=== PATIENT | female | born 1955 | race American Indian/Alaskan Native ===

== ENCOUNTER 2020-03-11 18:44 | Emergency (ER) | payer BC, OTHER ==
[2020-03-11] MEDS ORDERED: Acetaminophen/HYDROcodone 325-10 MG Tab PO ONE ×2 (18:45→19:56)
--- NOTE | 2020-03-11 19:10 | CR ---
PROCEDURE INFORMATION: Exam: XR Left Ankle Exam date and time: 03/11/2020 6:57 PM Age: 64 years old Clinical indication: Other: Fall; Additional info: Pain TECHNIQUE: Imaging protocol: XR Left ankle. Views: 3 or more views. COMPARISON: No relevant prior studies available. FINDINGS: Bones/joints: There is an intramedullary amador within the tibia which is secured with 2 proximal and 2 distal threaded screws. There is an acute trimalleolar fracture of the ankle. There is a transverse fracture of the medial malleolus. The distal fracture fragment is laterally displaced by half the width of the malleolus. There is a fracture oriented obliquely through the distal metaphysis of the fibula. The distal fracture fragment is laterally displaced by half the width of the shaft. There is a nondisplaced fracture through the posterior malleolus. There is widening of the ankle mortise medially. There is a large plantar calcaneal spur. Soft tissues: There is extensive soft tissue swelling surrounding the ankle. IMPRESSION: Acute trimalleolar fracture with disruption of the ankle mortise medially in this patient with a history of previous pinning of the tibia.
[2020-03-11] MEDS ORDERED: Acetaminophen/HYDROcodone 325-10 MG Tab ONE (20:06)
--- NOTE | 2020-03-11 20:06 | EDM.PDOC ---
ED HPI GENERAL MEDICAL PROBLEM - General Chief Complaint: Lower Extremity Injury/Pain Stated Complaint: LEFT LEG BY THE ANKLE POSSIBLE BROKEN Time Seen by Provider: 03/11/20 19:35 Source of Information: Reports: Patient History Limitations: Reports: No Limitations - History of Present Illness INITIAL COMMENTS - FREE TEXT/NARRATIVE: This 64 yo female patient reports to the ED with left ankle pain. The patient reports she "rolled" her ankle this morning and has noticed increased pain and swelling since that time. 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 Right Upper Arm Pain Score (Numeric/FACES): 10 - Related Data Allergies Allergy/AdvReac Type Severity Reaction Status Date / Time codeine Allergy Cannot Verified 03/11/20 20:00 Remember Past Medical History Cardiovascular History: Reports: Hypertension - Past Surgical History GI Surgical History: Reports: Cholecystectomy Musculoskeletal Surgical History: Reports: Other (See Below) Other Musculoskeletal Surgeries/Procedures:: LEft lower leg surgery with rods (2012) Social & Family History - Family History Family Medical History: Noncontributory - Tobacco Use Smoking Status *Q: Never Smoker Second Hand Smoke Exposure: No - Caffeine Use Caffeine Use: Reports: Soda, Tea - Alcohol Use Date of Last Drink: 03/09/20 - Recreational Drug Use Recreational Drug Use: No Review of Systems - Review of Systems Review Of Systems: Comprehensive ROS is negative, except as noted in HPI. ED EXAM, GENERAL - Physical Exam Exam: See Below Exam Limited By: No Limitations General Appearance: Alert, WD/WN, No Apparent Distress Eye Exam: Bilateral Eye: EOMI, Normal Inspection, PERRL Ears: Normal External Exam, Normal Canal, Hearing Grossly Normal, Normal TMs Nose: Normal Inspection, Normal Mucosa, No Blood Throat/Mouth: Normal Inspection, Normal Lips, Normal Teeth, Normal Gums, Normal Oropharynx, Normal Voice, No Airway Compromise Head: Atraumatic, Normocephalic Neck: Normal Inspection, Supple, Non-Tender, Full Range of Motion Respiratory/Chest: No Respiratory Distress, Lungs Clear, Normal Breath Sounds, No Accessory Muscle Use, Chest Non-Tender Cardiovascular: Normal Peripheral Pulses, Regular Rate, Rhythm, No Edema, No Gallop, No JVD, No Murmur, No Rub GI/Abdominal: Normal Bowel Sounds, Soft, Non-Tender, No Organomegaly, No Di stention, No Abnormal Bruit, No Mass (Female) Exam: Deferred Rectal (Female) Exam: Deferred Back Exam: Normal Inspection, Full Range of Motion, NT Extremities: Leg Pain (left ankle pain with swelling) Neurological: Alert, Oriented, CN II-XII Intact, Normal Cognition, Abnormal Gait Psychiatric: Normal Affect, Normal Mood Lymphatic: No Adenopathy Course - Vital Signs Last Recorded V/S: Last Vital Signs Temp 36.8 C 03/11/20 19:12 Pulse 69 03/11/20 19:12 Resp 18 03/11/20 19:12 BP 131/54 L 03/11/20 19:12 Pulse Ox 98 03/11/20 19:12 - Orders/Labs/Meds Meds: Medications Discontinued Medications Generic Name Dose Route Start Last Admin Trade Name Freq PRN Reason Stop Dose Admin Hydrocodone Bitart/Acetaminophen 1 tab 03/11/20 19:56 [place] 325-10 Mg PO 03/11/20 19:57 ONETIME ONE Departure - Departure Time of Disposition: 20:00 Disposition: Home, Self-Care 01 Condition: Fair Clinical Impression: Fracture of tibia with fibula, left, closed Qualifiers: Encounter type: initial encounter Qualified Code(s): S82.202A - Unspecified fracture of shaft of left tibia, initial encounter for closed fracture; S82.402A - Unspecified fracture of shaft of left fibula, initial encounter for closed fracture - Discharge Information *PRESCRIPTION DRUG MONITORING PROGRAM REVIEWED*: Not Applicable *COPY OF PRESCRIPTION DRUG MONITORING REPORT IN PATIENT MIRIAM: Not Applicable Instructions: Tibial and Fibular Fractures Care Plan Goals: The patient was advised of the examination and x-ray results during the visit. The patient was placed in an immobilizing boot and advised to have NO weight bearing activities. The patient was encouraged to rest, ice and elevate the extremity. The patient was given an oral dose of Lookout (10/325) while in the ED and 1 dose to take at 0200 in the morning (if needed). The patient was advised to call [facility] in the morning for continued evaluation and further management. The patient was discharged with a script for Lookout (5/325) #10 to take 1 by mouth every 6 hours as needed for pain. If the patient has any additional symptoms or concerns, the patient should either return to the emergency department or visit her primary care facility. Sepsis Event Note (ED) - Evaluation Sepsis Screening Result: No Definite Risk - Focused Exam Vital Signs: Vital Signs Temp Pulse Resp BP Pulse Ox 03/11/20 19:12 36.8 C 69 18 131/54 L 98
== END 2020-03-11 20:15 | disposition home or self-care (01) ==
LOC: DL.ED 18:44
DX: S82.852A Displaced trimalleolar fracture of left lower leg, initial encounter for closed fracture (principal); I10 Essential (primary) hypertension; Z88.5 Allergy status to narcotic agent; X50.9XXA Other and unspecified overexertion or strenuous movements or postures, initial encounter
CPT/HCPCS: 73610; 99283; A9270

== ENCOUNTER 2020-03-15 20:52 | Emergency (ER) | payer BC, OTHER ==
--- NOTE | 2020-03-15 21:15 | EDM.PDOC ---
ED HPI GENERAL MEDICAL PROBLEM - General Chief Complaint: Lower Extremity Injury/Pain Stated Complaint: LEFT LEG ANKLE BROKEN, FIBULA AND TIBULA BONES Time Seen by Provider: 03/15/20 21:15 Source of Information: Reports: Patient, RN, RN Notes Reviewed History Limitations: Reports: No Limitations - History of Present Illness INITIAL COMMENTS - FREE TEXT/NARRATIVE: Patient presents to ER with complaint of pain to the left ankle. Patient was seen in the ER on 03/11/2020 with fracture distal tib-fib. Patient did see Ortho surgeon today, ankle was manipulated and adjusted. Patient was not given anything for pain, was instructed to use Tylenol and ibuprofen, which she states is not helping with the pain. Patient rates pain /. States she does have surgery on 03/19/2020. Onset: Today, Sudden Left Leg Pain Score (Numeric/FACES): 10 - Related Data Allergies Allergy/AdvReac Type Severity Reaction Status Date / Time codeine Allergy Cannot Verified 03/15/20 21:08 Remember Home Meds: Home Meds hydroCHLOROthiazide [Hydrochlorothiazide] 25 mg PO DAILY 03/15/20 [History] Past Medical History Cardiovascular History: Reports: Hypertension Musculoskeletal History: Reports: Fracture - Past Surgical History GI Surgical History: Reports: Cholecystectomy Musculoskeletal Surgical History: Reports: Other (See Below) Other Musculoskeletal Surgeries/Procedures:: L lower leg HX of rods Social & Family History - Family History Family Medical History: Noncontributory - Tobacco Use Smoking Status *Q: Never Smoker Second Hand Smoke Exposure: No - Caffeine Use Caffeine Use: Reports: None - Recreational Drug Use Recreational Drug Use: No Review of Systems - Review of Systems Review Of Systems: Comprehensive ROS is negative, except as noted in HPI. ED EXAM, GENERAL - Physical Exam Exam: See Below Exam Limited By: No Limitations General Appearance: Alert, WD/WN, Mild Distress Eye Exam: Bilateral Eye: EOMI, Normal Inspection Ears: Normal External Exam, Hearing Grossly Normal Nose: Normal Inspection Throat/Mouth: Normal Inspection, Normal Voice, No Airway Compromise Head: Atraumatic, Normocephalic Neck: Normal Inspection, Supple, Non-Tender, Full Range of Motion Respiratory/Chest: No Respiratory Distress, Lungs Clear, Normal Breath Sounds, No Accessory Muscle Use, Chest Non-Tender Cardiovascular: Normal Peripheral Pulses, Regular Rate, Rhythm, No Edema, No Gallop, No JVD, No Murmur, No Rub Peripheral Pulses: 2+: Radial (L), Radial (R), Dorsalis Pedis (L), Dorsalis Pedis (R) GI/Abdominal: Normal Bowel Sounds, Soft, Non-Tender (Female) Exam: Deferred Rectal (Female) Exam: Deferred Back Exam: Normal Inspection, Full Range of Motion Extremities: Leg Pain (Left ankle casted/splinted, reports pain 10/10), Limited Range of Motion (left ankle) Neurological: Alert, Oriented, CN II-XII Intact, Normal Cognition, Normal Reflexes, No Motor/Sensory Deficits Psychiatric: Normal Affect, Normal Mood Skin Exam: Warm, Dry, Intact, Normal Color, No Rash Lymphatic: No Adenopathy Course - Vital Signs Last Recorded V/S: Last Vital Signs Temp 97.5 F 03/15/20 21:01 Pulse 68 03/15/20 21:01 Resp 18 03/15/20 21:01 BP 153/62 H 03/15/20 21:01 Pulse Ox 98 03/15/20 21:01 - Orders/Labs/Meds Meds: Medications Discontinued Medications Generic Name Dose Route Start Last Admin Trade Name Ivy PRN Reason Stop Dose Admin Hydrocodone Bitart/Acetaminophen 1 tab 03/15/20 21:21 03/15/20 21:38 [place] 325-5 Mg PO 03/15/20 21:22 Not Given ONETIME ONE Hydromorphone HCl 0.5 mg 03/15/20 21:29 03/15/20 21:38 Dilaudid IM 03/15/20 21:30 0.5 mg ONETIME ONE Administration Ketorolac Tromethamine 30 mg 03/15/20 21:28 03/15/20 21:38 Toradol IM 03/15/20 21:29 30 mg ONETIME ONE Administration Departure - Departure Time of Disposition: 21:49 Disposition: Home, Self-Care 01 Condition: Fair Clinical Impression: Pain in left ankle Qualifiers: Chronicity: acute Qualified Code(s): M25.572 - Pain in left ankle and joints of left foot Fracture of tibia with fibula, left, closed Qualifiers: Encounter type: initial encounter Qualified Code(s): S82.202A - Unspecified fracture of shaft of left tibia, initial encounter for closed fracture - Discharge Information *PRESCRIPTION DRUG MONITORING PROGRAM REVIEWED*: No *COPY OF PRESCRIPTION DRUG MONITORING REPORT IN PATIENT MIRIAM: No Instructions: Pain Medicine Instructions, [id number] Forms: ED Department Discharge Additional Instructions: Follow up with Ortho surgery on Thursday Continue to take ibuprofen as directed for pain Rx: [place] as directed Follow orthopedics instructions Sepsis Event Note (ED) - Evaluation Sepsis Screening Result: No Definite Risk - Focused Exam Vital Signs: Vital Signs Temp Pulse Resp BP Pulse Ox 03/15/20 21:01 97.5 F 68 18 153/62 H 98
[2020-03-15] MEDS ORDERED: Acetaminophen/HYDROcodone 325-5 MG Tab PO ONE (21:21)
[2020-03-15] MEDS ORDERED: Ketorolac 30 MG/ML SDV IM ONE (21:28)
[2020-03-15] MEDS ORDERED: HYDROmorphone 0.5 MG/0.5 ML Syringe IM ONE (21:29)
== END 2020-03-15 21:50 | disposition home or self-care (01) ==
LOC: DL.ED 20:52
DX: S82.852A Displaced trimalleolar fracture of left lower leg, initial encounter for closed fracture (principal); Z88.5 Allergy status to narcotic agent; I10 Essential (primary) hypertension; Z79.899 Other long term (current) drug therapy; X58.XXXA Exposure to other specified factors, initial encounter
CPT/HCPCS: 96372; 99283; J1170; J1885

== ENCOUNTER 2020-03-17 00:37 | Emergency (ER) | payer BC, OTHER ==
--- NOTE | 2020-03-17 01:19 | EDM.PDOC ---
ED HPI GENERAL MEDICAL PROBLEM - General Chief Complaint: Lower Extremity Injury/Pain Stated Complaint: SO MUCH PAIN LEFT LEG, TOES NUMB, CAST TIGHT Time Seen by Provider: 03/17/20 01:30 Source of Information: Reports: Patient History Limitations: Reports: No Limitations - History of Present Illness INITIAL COMMENTS - FREE TEXT/NARRATIVE: ED with c/o severe pain to left lower leg, seen in ED night prior with similar c/o, Did not contact ortho during day. States pain increased after manipulation of fracture and splint replaced by ortho last week, states pain greatest at area of indentation mid splint. Describes increased swelling of foot and tingling in toes and foot. Has had foot elevated and applying ice to extremity. 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 Left Ankle Pain Score (Numeric/FACES): 10 - Related Data Allergies Allergy/AdvReac Type Severity Reaction Status Date / Time codeine Allergy Cannot Verified 03/17/20 01:13 Remember Home Meds: Home Meds hydroCHLOROthiazide [Hydrochlorothiazide] 25 mg PO DAILY 03/15/20 [History] Past Medical History Cardiovascular History: Reports: Hypertension Musculoskeletal History: Reports: Fracture - Past Surgical History GI Surgical History: Reports: Cholecystectomy Musculoskeletal Surgical History: Reports: Other (See Below) Other Musculoskeletal Surgeries/Procedures:: L lower leg HX of rods Social & Family History - Family History Family Medical History: Noncontributory - Caffeine Use Caffeine Use: Reports: None Review of Systems - Review of Systems Review Of Systems: Comprehensive ROS is negative, except as noted in HPI. ED EXAM, GENERAL - Physical Exam Exam: See Below Exam Limited By: No Limitations General Appearance: Alert, Moderate Distress Eye Exam: Bilateral Eye: EOMI Ears: Normal External Exam, Normal Canal Nose: Normal Inspection Throat/Mouth: Normal Inspection Neck: Full Range of Motion Respiratory/Chest: No Respiratory Distress Cardiovascular: Normal Peripheral Pulses, Regular Rate, Rhythm Extremities: Normal Capillary Refill (decreased left in comparison to right), Limited Range of Motion, Other (splint left lower extremity clan intact. indentation mid posterior medial. jewel swollen. pedal pulse present, ). No: Pallor Neurological: Alert, Oriented, Normal Cognition, Normal Gait Psychiatric: Normal Affect, Normal Mood Skin Exam: Warm, Dry, Intact ED TRAUMA EXTREMITY PROCEDURES - Splinting Left Lower Extremity Pre-Procedure NV Status: Abnormal Post-Procedure NV Status: Normal Splint Material: Fiberglass Splint Design: Stirrup Applied & Form Fitted By: Provider Provider Post-Splint Application NV Check: NV Status Normal Complications: No Course - Vital Signs Last Recorded V/S: Last Vital Signs Temp 98.4 F 03/17/20 01:21 Pulse 70 03/17/20 01:21 Resp 20 03/17/20 01:21 BP 151/69 H 03/17/20 01:21 Pulse Ox 99 03/17/20 01:21 - Orders/Labs/Meds Meds: Medications Discontinued Medications Generic Name Dose Route Start Last Admin Trade Name Ivy PRN Reason Stop Dose Admin Hydrocodone Bitart/Acetaminophen 1 tab 03/17/20 02:03 03/17/20 02:15 [place] 325-10 Mg PO 03/17/20 02:04 1 tab ONETIME ONE Administration Fentanyl 25 mcg 03/18/20 06:27 Sublimaze IVPUSH 03/18/20 06:28 ONETIME ONE Sodium Chloride 1,000 mls @ 999 mls/hr 03/18/20 06:29 Normal Saline IV 03/18/20 07:29 .BOLUS ONE Ketorolac Tromethamine 30 mg 03/17/20 02:02 03/17/20 02:14 Toradol IM 03/17/20 02:03 30 mg ONETIME ONE Administration - Re-Assessments/Exams Free Text/Narrative Re-Assessment/Exam: stirrup splnt removed, replaced. Patient reports improvement in symptoms of pain and tingling. Improved sensation to distal toes. Departure - Departure Time of Disposition: 03:03 Disposition: Home, Self-Care 01 Condition: Good (trimalleolar) Clinical Impression: Trimalleolar fracture of left ankle Qualifiers: Encounter type: subsequent encounter Fracture type: closed Fracture healing: with routine healing Qualified Code(s): S82.852D - Displaced trimalleolar fracture of left lower leg, subsequent encounter for closed fracture with routine healing - Discharge Information *PRESCRIPTION DRUG MONITORING PROGRAM REVIEWED*: No *COPY OF PRESCRIPTION DRUG MONITORING REPORT IN PATIENT MIRIAM: No Instructions: Displaced Medial or Posterior Malleolar Ankle Fracture Treated With ORIF, Cast or Splint Care, Adult Referrals: PCP,None [Primary Care Provider] - Forms: ED Department Discharge Additional Instructions: elevate ice non weight bearing follow up with ortho as scheduled on Thursday
[2020-03-17] MEDS ORDERED: Ketorolac 30 MG/ML SDV IM ONE (02:02)
[2020-03-17] MEDS ORDERED: Acetaminophen/HYDROcodone 325-10 MG Tab PO ONE (02:03)
--- NOTE | 2020-03-17 02:26 | CR ---
PROCEDURE INFORMATION: Exam: XR Left Tibia and Fibula Exam date and time: 03/17/2020 1:39 AM Age: 64 years old Clinical indication: Other: No new injury; Additional info: Ankle pain TECHNIQUE: Imaging protocol: XR Left tibia and fibula. Views: 2 views. COMPARISON: CR LOWER LEG LT 08/27/2009 10:05 AM FINDINGS: Bones/joints: Trimalleolar fracture. This involves the distal fibula and the medial malleolus base. This is consistent with an eversion type injury. There also appears to be a fracture of the posterior aspect of the tibia. Patient is now in a plaster cast. Fractures are well aligned. Previous tibial fracture repair with medullary amador. That fracture has healed completely. Original fracture date for that lesion was 2008. Soft tissues: Normal. IMPRESSION: Well aligned trimalleolar fracture with closed reduction and casting.
[2020-03-18] MEDS ORDERED: fentaNYL 100 MCG/2 ML SDV IVPUSH ONE (06:27)
[2020-03-18] MEDS ORDERED: Sodium Chloride 0.9% 1,000 ML IV ONE (06:29)
== END 2020-03-17 03:15 | disposition home or self-care (01) ==
LOC: DL.ED 00:37
DX: S82.852A Displaced trimalleolar fracture of left lower leg, initial encounter for closed fracture (principal); I10 Essential (primary) hypertension; Z88.5 Allergy status to narcotic agent; Z79.899 Other long term (current) drug therapy; X50.1XXA Overexertion from prolonged static or awkward postures, initial encounter
CPT/HCPCS: 29515; 73590; 96372; 99283; A9270; J1885

== ENCOUNTER 2020-03-22 21:44 | Emergency (ER) | payer BC, OTHER ==
[2020-03-22] MEDS ORDERED: HYDROmorphone 1 MG/ML Syringe IM ONE (22:16)
[2020-03-22] MEDS ORDERED: Promethazine 25 MG/ML SDV IM ONE (22:16)
--- NOTE | 2020-03-22 22:23 | EDM.PDOC ---
ED HPI GENERAL MEDICAL PROBLEM - General Chief Complaint: Lower Extremity Injury/Pain Stated Complaint: LEFT LEG THROBING Time Seen by Provider: 03/22/20 21:56 Source of Information: Reports: Patient History Limitations: Reports: No Limitations - History of Present Illness INITIAL COMMENTS - FREE TEXT/NARRATIVE: Very pleasant tevin lady comes to the emergency department today with complaints of continued pressure and pain to her left lower extremity. This patient on Thursday just had surgery Thursday due to an acute trimalleolar fracture. She has not slept well ever since the cast was put in place. She has constant pain and pressure and it is throbbing and she is unable to sleep. She has not been taking her oxycodone very much nor her gabapentin as it makes her sick. She has been elevating her leg and keeping ice on it but she just cannot stand the pressure and the pain. [place] any paresthesias to her lower extremity. She also complains of skin irritation and pain on the sole of her foot where the cast is rubbing on her foot. Some falls or trauma to this left lower extremity or anywhere else. Left Ankle Pain Score (Numeric/FACES): 9 - Related Data Allergies Allergy/AdvReac Type Severity Reaction Status Date / Time codeine Allergy Cannot Verified 03/17/20 01:13 Remember Home Meds: Home Meds hydroCHLOROthiazide [Hydrochlorothiazide] 25 mg PO DAILY 03/15/20 [History] Alendronate [Fosamax] 1 dose PO ASDIRECTED 03/22/20 [History] Amitriptyline [Elavil] 10 mg PO DAILY 03/22/20 [History] Aspirin [Adult Low Dose Aspirin EC] 81 mg PO DAILY 03/22/20 [History] Diclofenac Sodium [Voltaren 1% Gel] 1 applic TOP ASDIRECTED PRN 03/22/20 [History] Fluticasone/Salmeterol [Fluticasone-Salmeterol 55-14 MCG Powder Inh] 1 inh INH DAILY 03/22/20 [History] Ibuprofen [Motrin] 600 mg PO Q6H PRN 03/22/20 [History] Lidocaine 5% [Lidoderm 5%] 1 patch TOP ASDIRECTED PRN 03/22/20 [History] Potassium Chloride 8 meq PO DAILY 03/22/20 [History] SUMAtriptan [Imitrex] 100 mg PO ASDIRECTED PRN 03/22/20 [History] Past Medical History Cardiovascular History: Reports: Hypertension Respiratory History: Reports: COPD Musculoskeletal History: Reports: Fracture Other Musculoskeletal History: tib/fib- 03/03 Psychiatric History: Reports: Anxiety - Past Surgical History GI Surgical History: Reports: Cholecystectomy Musculoskeletal Surgical History: Reports: Other (See Below) Other Musculoskeletal Surgeries/Procedures:: L lower leg HX of rods Social & Family History - Family History Family Medical History: Noncontributory - Tobacco Use Smoking Status *Q: Never Smoker Second Hand Smoke Exposure: No - Caffeine Use Caffeine Use: Reports: Soda - Recreational Drug Use Recreational Drug Use: No Review of Systems - Review of Systems Review Of Systems: Comprehensive ROS is negative, except as noted in HPI. ED EXAM, GENERAL - Physical Exam Exam: See Below Exam Limited By: No Limitations General Appearance: Alert, WD/WN, No Apparent Distress, Moderate Distress Respiratory/Chest: No Respiratory Distress, Lungs Clear Cardiovascular: Normal Peripheral Pulses, Regular Rate, Rhythm Peripheral Pulses: 2+: Radial (L), Radial (R), Posterior Tibial (R), Dorsalis Pedis (L), Dorsalis Pedis (R) GI/Abdominal: Normal Bowel Sounds, Soft Extremities: No: Normal Inspection (On the left lower extremity there is almost completely circumferential cast below the knee all the way down to the ball of the foot. When I examine the plantar surface of the left foot there is some plaster material that is exposed and rubbing on the skin in the sole of the foot on the first second and third metatarsal region. There is no sign of infection. There is I would say moderate amount of swelling to the foot. Capillary refill is appropriate. CMS is intact appropriate from what I can examine.) Neurological: Alert, Oriented, Normal Cognition, No Motor/Sensory Deficits Psychiatric: Normal Affect, Normal Mood Skin Exam: Warm, Dry, Intact, Normal Color Course - Vital Signs Last Recorded V/S: Last Vital Signs Temp 96.8 F L 03/22/20 21:54 Pulse 70 03/22/20 21:54 Resp 19 03/22/20 21:54 BP 146/100 H 03/22/20 21:54 Pulse Ox 100 03/22/20 21:54 - Orders/Labs/Meds Meds: Medications Discontinued Medications Generic Name Dose Route Start Last Admin Trade Name Freq PRN Reason Stop Dose Admin Hydromorphone HCl 1 mg 03/22/20 22:16 03/22/20 22:22 Dilaudid IM 03/22/20 22:17 1 mg ONETIME ONE Administration Promethazine HCl 25 mg 03/22/20 22:16 03/22/20 22:22 Phenergan IM 03/22/20 22:17 25 mg ONETIME ONE Administration - Re-Assessments/Exams Free Text/Narrative Re-Assessment/Exam: 03/23/20 00:36 The patient really would like me to remove the cast although I do not feel comfortable doing that as she just recently had surgery. I did remove the [place] wrap. And was able to flex the cast just ever so slightly to relieve some pressure around the ankle region. I also was able to put some rolled batting gently on the sole of her foot where the plaster is touching it on her foot and causing irritation and she had quite a bit of almost instant relief to most of her pain on the sole of her foot. Her pain around her ankle is much improved. Warren wrap applied loosely. Patient does not want her oxycodone as it makes her ill. I did advise I think that the Neurontin is actually very good and appropriate medication at this time for pain management. Her oxycodone was destroyed by the nursing staff. I will give her a prescription of hydrocodone 10/325 she said this actually worked better for her pain previously in the emergency department. She had 15 tablets of oxycodone 5 mg of a prescription for 30 from Thursday. These were destroyed and a prescription for 30 of hydrocodone 10/325 was given to the patient. Her CMS was intact appropriately after reapplying the Warren wrap. She is much more comfortable with this plan. She was also given a milligram of Dilaudid and 25 of Phenergan to help with pain and relaxation for tonight as she has not slept for the past couple of days. She is comfortable with this plan and her questions are answered. Departure - Departure Time of Disposition: 20:18 Disposition: Home, Self-Care 01 Clinical Impression: Post-op pain, Skin irritation - Discharge Information Instructions: How to Use Cold Therapy, [id number], Pain Medicine Instruction s, [id number], Cast or Splint Care, Adult Referrals: PCP,None [Primary Care Provider] - Forms: ED Department Discharge Additional Instructions: We discarded the Oxycodone at your request and wasted that medication. Continue with the Gabapentin this is a good medication for this time of pain. Take as prescribed. Try Hydrocodone 10/315, 1/2-1 tablet every 4-6 hrs with food as needed for pain. Caution sedation. Do not take Tylenol with this medication as it has Tylenol in it as well. RX given to the patient 30. Make sure and elevate the extremity above the level of your heart as much as possible. Continue with aggressive ice therapy to the lower extremity as well. Contact your surgeon and let him know what was changed tonight in the ED, you really need the cast replaced with the plaster that is touching and breaking down your skin. This needs to be done prior to the of this month. Return to the ED if new or worsening symptoms. Sepsis Event Note (ED) - Evaluation Sepsis Screening Result: No Definite Risk - Focused Exam Vital Signs: Vital Signs Temp Pulse Resp BP Pulse Ox 03/22/20 21:54 96.8 F L 70 19 146/100 H 100 - Assessment/Plan Assessment:: SP left ankle fracture with post op pain. Skin irritation on the sole of the foot from the plaster material. Plan: We discarded the Oxycodone at your request and wasted that medication. Continue with the Gabapentin this is a good medication for this time of pain. Take as prescribed. Try Hydrocodone 10/315, 1/2-1 tablet every 4-6 hrs with food as needed for pain. Caution sedation. Do not take Tylenol with this medication as it has Tylenol in it as well. RX given to the patient 30. Make sure and elevate the extremity above the level of your heart as much as possible. Continue with aggressive ice therapy to the lower extremity as well. Contact your surgeon and let him know what was changed tonight in the ED, you really need the cast replaced with the plaster that is touching and breaking down your skin. This needs to be done prior to the of this month. Return to the ED if new or worsening symptoms.
== END 2020-03-22 22:35 | disposition home or self-care (01) ==
LOC: DL.ED 21:44
DX: G89.29 Other chronic pain (principal); L98.8 Other specified disorders of the skin and subcutaneous tissue; Z88.5 Allergy status to narcotic agent; I10 Essential (primary) hypertension; J44.9 Chronic obstructive pulmonary disease, unspecified; Z79.82 Long term (current) use of aspirin; Z79.899 Other long term (current) drug therapy
CPT/HCPCS: 96372; 99283; J1170; J2550

== ENCOUNTER 2020-07-25 14:35 | Emergency (ER) | payer BC, OTHER ==
--- NOTE | 2020-07-25 16:28 | CR ---
EXAMINATION: Chest 1V Frontal SEX: Female AGE: 65 years CLINICAL HISTORY: 65-year-old female, "COVID positive" patient, with chest pain. Interpretation: Brassiere hardware (foreign body). Less than optimal inspiratory effort. Patchy density both lung bases may reflect poor inspiration and atelectasis. Normal cardiac silhouette (size and configuration). No pulmonary vascular congestion, cephalization of flow or alveolar edema. No dependent pleural fluid accumulation or effusion. No lung mass or hilar lymphadenopathy. No focal lobar infiltrate or other atelectasis/collapse. No pneumothorax or pneumomediastinum. Midline tracheobronchial airway unremarkable. CONCLUSION: No signs of heart failure, lung mass or lobar pneumonia.
[2020-07-25 16:39] LABS: CHLORIDE,CL 101 mmol/L (98-107); SODIUM,NA 139 mmol/L (136-145)
--- NOTE | 2020-07-25 17:10 | EDM.PDOC ---
ED HPI GENERAL MEDICAL PROBLEM - General Chief Complaint: Respiratory Problem Stated Complaint: SHORTNESS OF BREATH Time Seen by Provider: 07/25/20 15:30 Source of Information: Reports: Patient, RN, RN Notes Reviewed History Limitations: Reports: No Limitations - History of Present Illness INITIAL COMMENTS - FREE TEXT/NARRATIVE: Patient presents to the ED via personal vehicle with complaints of shortness of breath. The patient states she tested positive for COVID on 07/17/2020 following appearance of symptoms of 07/16/2020. Additionally, she attests to fever, shaking chills, headache, cough, sore throat, chest tightness, nausea, and diarrhea. She denies sinus pressure/drainage/pain, ear pressure/drainage/pain, chest pain, hemoptysis, vomiting, dyspepsia, melena, or hematochezia. She states she has not taken any medications for these symptoms but is concerned that she is, "...not better yet." She has been instructed by her boss that she is to return to work tomorrow, even though her quarantine does not end until 07/31/2020. She expresses concern that she does not feel well enough to work and that she [place] not want to further spread COVID in the community. - Related Data Allergies Allergy/AdvReac Type Severity Reaction Status Date / Time codeine Allergy Cannot Verified 03/17/20 01:13 Remember Home Meds: Home Meds hydroCHLOROthiazide [Hydrochlorothiazide] 25 mg PO DAILY 03/15/20 [History] Alendronate [Fosamax] 1 dose PO ASDIRECTED 03/22/20 [History] Amitriptyline [Elavil] 10 mg PO DAILY 03/22/20 [History] Aspirin [Adult Low Dose Aspirin EC] 81 mg PO DAILY 03/22/20 [History] Diclofenac Sodium [Voltaren 1% Gel] 1 applic TOP ASDIRECTED PRN 03/22/20 [History] Fluticasone/Salmeterol [Fluticasone-Salmeterol 55-14 MCG Powder Inh] 1 inh INH DAILY 03/22/20 [History] Ibuprofen [Motrin] 600 mg PO Q6H PRN 03/22/20 [History] Lidocaine 5% [Lidoderm 5%] 1 patch TOP ASDIRECTED PRN 03/22/20 [History] Potassium Chloride 8 meq PO DAILY 03/22/20 [History] SUMAtriptan [Imitrex] 100 mg PO ASDIRECTED PRN 03/22/20 [History] Past Medical History HEENT History: Reports: None Cardiovascular History: Reports: Hypertension Respiratory History: Reports: COPD Gastrointestinal History: Reports: None Genitourinary History: Reports: None 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 Musculoskeletal History: Reports: Fracture Other Musculoskeletal History: tib/fib- 03/03 Neurological History: Reports: None Psychiatric History: Reports: Anxiety Endocrine/Metabolic History: Reports: None Hematologic History: Reports: None Immunologic History: Reports: None Oncologic (Cancer) History: Reports: None Dermatologic History: Reports: None - Infectious Disease History Infectious Disease History: Reports: Other (See Below) Other Infectious Disease History: covid - Past Surgical History Head Surgeries/Procedures: Reports: None GI Surgical History: Reports: Cholecystectomy Musculoskeletal Surgical History: Reports: Other (See Below) Other Musculoskeletal Surgeries/Procedures:: L lower leg HX of rods Social & Family History - Family History Family Medical History: No Pertinent Family History - Tobacco Use Tobacco Use Status *Q: Never Tobacco User Second Hand Smoke Exposure: No - Caffeine Use Caffeine Use: Reports: Soda - Recreational Drug Use Recreational Drug Use: No ED ROS GENERAL - Review of Systems Review Of Systems: Comprehensive ROS is negative, except as noted in HPI. ED EXAM, GENERAL - Physical Exam Exam: See Below Exam Limited By: No Limitations General Appearance: Alert, Mild Distress Eye Exam: Bilateral Eye: EOMI, Normal Inspection, PERRL Ears: Normal External Exam, Normal Canal Ear Exam: Bilateral Ear: Auricle Normal, Canal Normal, TM normal Nose: Normal Inspection, Normal Mucosa Throat/Mouth: Normal Lips, Normal Teeth, Normal Voice, No Airway Compromise, Inflammation (Erythema to posterior oropharynx) Head: Atraumatic, Normocephalic Neck: Normal Inspection, Supple, Tender Midline (Anterior). No: Lymphadenopathy (L), Lymphadenopathy (R) Respiratory/Chest: Chest Non-Tender, Decreased Breath Sounds, Wheezing (Inspiratory to bilateral upper lobes), Accessory Muscle Use. No: Crackles, Rales, Rhonchi, Stridor, Pleural Rub, Prolonged Expiration Cardiovascular: Normal Peripheral Pulses, Regular Rate, Rhythm, No Edema, No Gallop, No JVD, No Murmur, No Rub Peripheral Pulses: 2+: Radial (L), Dorsalis Pedis (L) GI/Abdominal: Normal Bowel Sounds, Soft, Non-Tender, No Distention, No Mass, Pelvis Stable Back Exam: Normal Inspection, Full Range of Motion. No: CVA Tenderness (L), CVA Tenderness (R) Extremities: Normal Inspection, Normal Range of Motion Neurological: Alert, Oriented, CN II-XII Intact, Normal Cognition, Normal Gait, No Motor/Sensory Deficits Psychiatric: Normal Affect, Normal Mood Skin Exam: Warm, Dry, Intact, Normal Color, No Rash. No: Ecchymosis, Erythema, Mottled, Pallor, Petechiae Course - Vital Signs Last Recorded V/S: Last Vital Signs Temp 98.8 F 07/25/20 15:07 Pulse 77 07/25/20 15:07 Resp 18 07/25/20 15:07 BP 136/86 07/25/20 15:07 Pulse Ox 99 07/25/20 15:07 - Orders/Labs/Meds Labs: Laboratory Tests 07/25/20 07/25/20 07/25/20 Range/Units 16:06 16:06 16:06 WBC 4.4 L (5.0-10.0) 10^3/uL RBC 4.52 (4.2-5.4) 10^6/uL Hgb 14.4 (12.0-16.0) g/dL Hct 42.8 (37.0-47.0) % MCV 94.7 (80-100) fL MCH 31.9 (27.0-34.0) pg MCHC 33.6 (33.0-35.0) g/dL Plt Count 147 L (150-450) 10^3/uL Neut % (Auto) 60.0 (42.2-75.2) % Lymph % (Auto) 29.8 (20.5-50.1) % Terry % (Auto) 9.5 H (2-8) % Eos % (Auto) 0.5 L (1.0-3.0) % Baso % (Auto) 0.2 (0.0-1.0) % D-Dimer, Quantitative 179 (0-400) ng/mL Sodium 139 (136-145) mmol/L Potassium 4.0 (3.5-5.1) mmol/L Chloride 101 (98-107) mmol/L Carbon Dioxide 31 (21-32) mmol/L Anion Gap 11.0 (7-13) mEq/L BUN 12 (7-18) mg/dL Creatinine 0.89 (0.55-1.02) mg/dL Est Cr Clr Drug Dosing 62.92 mL/min Estimated GFR (MDRD) > 60 BUN/Creatinine Ratio 13.5 (No establ ref range) Glucose 95 (74-99) mg/dL Calcium 9.3 (8.5-10.1) mg/dL Phosphorus 4.0 (2.6-4.7) mg/dL Magnesium 2.1 (1.8-2.4) mg/dL Total Bilirubin 0.3 (0.2-1.0) mg/dL AST 33 (15-37) U/L ALT 33 (14-59) U/L Alkaline Phosphatase 142 H (46-116) U/L Troponin I < 0.017 (0.000-0.056) ng/mL Total Protein 7.2 (6.4-8.2) g/dL Albumin 3.4 (3.4-5.0) g/dL Globulin 3.8 Albumin/Globulin Ratio 0.9 - Re-Assessments/Exams Free Text/Narrative Re-Assessment/Exam: 07/25/20 Discussed typical course of viral illness with patient, including severity of symptoms and home management vs. hospital management. As she is not hypoxic and likely at the peak of her symptoms, will treat with supportive cares, including antitussives and albuterol inhaler. Discussed the importance of not returning to work until quarantine is up. Will provide note for her for work. Patient verbalized understanding and agreement with the plan of care. Departure - Departure Time of Disposition: 17:09 Disposition: Home, Self-Care 01 Condition: Good Clinical Impression: Upper respiratory tract infection due to COVID-19 virus - Discharge Information *PRESCRIPTION DRUG MONITORING PROGRAM REVIEWED*: Not Applicable *COPY OF PRESCRIPTION DRUG MONITORING REPORT IN PATIENT MIRIAM: Not Applicable Instructions: COVID-19 Frequently Asked Questions, COVID-19: How to Protect Yourself and Others - CDC Forms: ED Department Discharge Additional Instructions: Rx: Tessalon Rx: Albuterol inhaler Follow the [facility] guidelines regarding quarantine. Drink plenty of fluids to stay hydrated. Take acetaminophen (Tylenol) 1000mg every six hours for muscle aches and fever. Take ibuprofen (Motrin/Advil) 400mg every six hours for muscle aches and fever. You may stagger these doses so you are taking a medication every three hours. Sepsis Event Note (ED) - Evaluation Sepsis Screening Result: No Definite Risk
== END 2020-07-25 18:30 | disposition home or self-care (01) ==
LOC: DL.ED 14:35
DX: U07.1 COVID-19 (principal); I10 Essential (primary) hypertension; J44.9 Chronic obstructive pulmonary disease, unspecified; F41.9 Anxiety disorder, unspecified; Z79.82 Long term (current) use of aspirin; Z88.5 Allergy status to narcotic agent; Z79.899 Other long term (current) drug therapy
CPT/HCPCS: 36415; 71045; 80053; 83735; 84100; 84484; 85025; 85379; 99285-25

== ENCOUNTER 2022-10-14 06:03 | Day surgery (SDC) | payer BC, OTHER ==
[~2022-10-14 06:03] MED LIST: Sodium Chloride 0.9% 10 ML Syringe FLUSH SCH
[2022-10-14] MEDS ORDERED: Midazolam 1 MG/ML 2 ML SDV IV ONE ×7 (06:04→07:01)
[2022-10-14] MEDS ORDERED: fentaNYL 100 MCG/2 ML SDV IV ONE ×3 (06:04→06:53)
[2022-10-14] MEDS ORDERED: Midazolam 1 MG/ML 2 ML SDV ONE (06:06)
[2022-10-14] MEDS ORDERED: fentaNYL 100 MCG/2 ML SDV ONE (06:06)
[2022-10-14] MEDS ORDERED: Sodium Chloride 0.9% 10 ML Syringe FLUSH PRN (06:30)
[2022-10-14] MEDS ORDERED: Dextrose 5%-0.45% NaCl 1,000 ML IV SCH (06:30)
== END 2022-10-14 09:13 | disposition home or self-care (01) ==
LOC: DL.ENDO 06:03
PROVIDERS: ATTEND Internal Medicine Gastroenterology
DX: K63.89 Other specified diseases of intestine (principal); K64.8 Other hemorrhoids; I10 Essential (primary) hypertension; E66.09 Other obesity due to excess calories; E87.6 Hypokalemia; Z88.5 Allergy status to narcotic agent; Z98.890 Other specified postprocedural states; Z68.33 Body mass index [BMI] 33.0-33.9, adult
CPT/HCPCS: J2250; J3010; J7042

== ENCOUNTER 2023-04-29 18:34 | Emergency (ER) | payer BC, OTHER ==
[2023-04-29] MEDS ORDERED: Ondansetron 4 MG/2 ML SDV IVPUSH ONE (19:21)
[2023-04-29 19:38] LABS: HEMATOCRIT 40.5 % (37.0-47.0); HEMOGLOBIN 13.7 g/dL (12.0-16.0); LYMPHOCYTES PERCENT AUTO 8.1 % (20.5-50.1); MEAN CORPUSCULAR HEMOGLOBIN 31.6 pg (27.0-34.0); MEAN CORPUSCULAR HGB CONC 33.8 g/dL (33.0-35.0); MEAN CORPUSCULAR VOLUME 93.5 fL (80-100); MONOCYTES PERCENT AUTO 10.6 % (2-8); NEUTROPHILS PERCENT AUTO 81.3 % (42.2-75.2); PLATELET COUNT,PLT 161 10^3/uL (150-450); RED BLOOD CELL COUNT 4.33 10^6/uL (4.2-5.4); WHITE BLOOD CELL COUNT,WBC 5.6 10^3/uL (5.0-10.0)
[2023-04-29] MEDS: Sodium Chloride 0.9% 10 ML Syringe FLUSH PRN ×3 (19:42→22:25)
[2023-04-29 19:57] LABS: PROTHROMBIN TIME 9.9 SEC (9.0-12.0); PTT,PARTIAL THROMBOPLSTIN TIME 24.5 SEC (22.0-34.0)
[2023-04-29 20:00] LABS: ALBUMIN 3.2 g/dL (3.4-5.0); ANION GAP 13.5 mEq/L (7-13); BILIRUBIN TOTAL 0.6 mg/dL (0.2-1.0); BUN/CREATININE RATIO 12.5 (No establ ref range); C-REACTIVE PROTEIN 5.7 mg/dL (0.0-0.9); CALCIUM 7.6 mg/dL (8.5-10.1); CREATININE 1.12 mg/dL (0.55-1.02); EST CRCL DRUG DOSING (CG) 46.88 mL/min; MAGNESIUM 1.8 mg/dL (1.8-2.4); POTASSIUM,K 2.5 mmol/L (3.5-5.1); PROTEIN TOTAL,TP 6.4 g/dL (6.4-8.2)
[2023-04-29 20:03] LABS: LACTIC ACID 1.6 mmol/L (0.4-2.0)
[2023-04-29] MEDS ORDERED: Potassium Chloride 20 MEQ in Premix Bag 1 BAG IV ONE (20:06)
[2023-04-29] MEDS ORDERED: Sodium Chloride 0.9% 1,000 ML IV ONE (20:06)
[2023-04-29] MEDS ORDERED: fentaNYL 100 MCG/2 ML SDV IVPUSH ONE (20:10)
[2023-04-29] MEDS ORDERED: Dexamethasone 4 MG/ML SDV IVPUSH ONE (22:10)
[2023-04-29] MEDS ORDERED: Take Home: Ondansetron 4 MG Tab.DIS, 5 Tab Pack PO ONE (22:19)
== END 2023-04-29 22:43 | disposition home or self-care (01) ==
LOC: DL.ED 18:34
DX: E87.6 Hypokalemia (principal); R11.2 Nausea with vomiting, unspecified; R51.9 Headache, unspecified; J44.9 Chronic obstructive pulmonary disease, unspecified; I10 Essential (primary) hypertension; Z88.5 Allergy status to narcotic agent; Z79.899 Other long term (current) drug therapy; Z79.82 Long term (current) use of aspirin; Z86.16 Personal history of COVID-19; Z90.49 Acquired absence of other specified parts of digestive tract; Z20.822 Contact with and (suspected) exposure to COVID-19
CPT/HCPCS: 36415; 80053; 82150; 83605; 83690; 83735; 85025; 85610; 85730; 86140; 87804; 96365; 96366; 96375; 99284; 99284-25; J1100; J2405; J3010; J3480; J3490; J7030; Q0162; U0002

== ENCOUNTER 2024-03-20 22:08 | Emergency (ER) | payer BC, OTHER ==
[2024-03-20 22:49] LABS: BASOPHILS PERCENT AUTO 0.3 % (0.0-1.0); EOSINOPHILS PERCENT AUTO 4.8 % (1.0-3.0); HEMATOCRIT 38.2 % (37.0-47.0); HEMOGLOBIN 12.5 g/dL (12.0-16.0); LYMPHOCYTES PERCENT AUTO 25.6 % (20.5-50.1); MEAN CORPUSCULAR HEMOGLOBIN 31.7 pg (27.0-34.0); MEAN CORPUSCULAR HGB CONC 32.7 g/dL (33.0-35.0); MONOCYTES PERCENT AUTO 8.1 % (2-8); NEUTROPHILS PERCENT AUTO 61.2 % (42.2-75.2); PLATELET COUNT,PLT 208 10^3/uL (150-450); RED BLOOD CELL COUNT 3.94 10^6/uL (4.2-5.4); WHITE BLOOD CELL COUNT,WBC 6.2 10^3/uL (5.0-10.0)
[2024-03-20 23:08] LABS: A/G RATIO 1.1; ALANINE AMINOTRANSFERASE,ALT 14 U/L (14-59); ALBUMIN 3.5 g/dL (3.4-5.0); ALKALINE PHOSPHATASE 69 U/L (46-116); ANION GAP 13.5 mEq/L (7-13); ASPARTATE AMNIOTRANSFERASE,AST 11 U/L (15-37); BILIRUBIN TOTAL 0.2 mg/dL (0.2-1.0); BLOOD UREA NITROGEN,BUN 15 mg/dL (7-18); BUN/CREATININE RATIO 14.4 (No establ ref range); C-REACTIVE PROTEIN < 0.50 ng/dL (<=0.50); CALCIUM 8.4 mg/dL (8.5-10.1); CARBON DIOXIDE,CO2 28 mmol/L (21-32); CHLORIDE,CL 106 mmol/L (98-107); CREATININE 1.04 mg/dL (0.55-1.02); EST CRCL DRUG DOSING (CG) 49.81 mL/min; ESTIMATED GFR 59 mL/min (>=60); GLUCOSE RANDOM 101 mg/dL (70-99); POTASSIUM,K 3.5 mmol/L (3.5-5.1); PROTEIN TOTAL,TP 6.7 g/dL (6.4-8.2); SODIUM,NA 144 mmol/L (136-145)
[2024-03-20] MEDS: Doxycycline Monohydrate 100 MG Cap PO ONE (23:47)
== END 2024-03-20 23:54 | disposition home or self-care (01) ==
LOC: DL.ED 22:08
DX: L03.113 Cellulitis of right upper limb (principal); I10 Essential (primary) hypertension; J44.9 Chronic obstructive pulmonary disease, unspecified; Z86.16 Personal history of COVID-19; Z90.49 Acquired absence of other specified parts of digestive tract; Z79.899 Other long term (current) drug therapy; Z79.82 Long term (current) use of aspirin; Z88.5 Allergy status to narcotic agent
CPT/HCPCS: 36415; 80053; 85025; 86140; 99283; A9270

== ENCOUNTER 2025-01-03 10:08 | Emergency (ER) | payer BC, OTHER ==
[2025-01-03 10:54] LABS: INR 0.9 (0.9-1.2); PROTHROMBIN TIME 9.2 SEC (9.0-12.0)
[2025-01-03 11:01] LABS: A/G RATIO 1.1; ALBUMIN 3.7 g/dL (3.4-5.0); ANION GAP 8.4 mEq/L (7-13); BILIRUBIN TOTAL 0.6 mg/dL (0.2-1.0); BUN/CREATININE RATIO 16.5 (No establ ref range); CALCIUM 8.9 mg/dL (8.5-10.1); CREATININE 1.03 mg/dL (0.55-1.02); EST CRCL DRUG DOSING (CG) 49.62 mL/min; POTASSIUM,K 3.4 mmol/L (3.5-5.1); PROTEIN TOTAL,TP 7.1 g/dL (6.4-8.2)
[2025-01-03 11:19] LABS: BASOPHILS PERCENT AUTO 0.2 % (0.0-1.0); EOSINOPHILS PERCENT AUTO 1.8 % (1.0-3.0); HEMATOCRIT 40.1 % (37.0-47.0); HEMOGLOBIN 12.9 g/dL (12.0-16.0); LYMPHOCYTES PERCENT AUTO 27.7 % (20.5-50.1); MEAN CORPUSCULAR HEMOGLOBIN 30.9 pg (27.0-34.0); MEAN CORPUSCULAR HGB CONC 32.2 g/dL (33.0-35.0); MEAN CORPUSCULAR VOLUME 95.9 fL (80-100); MONOCYTES PERCENT AUTO 8.2 % (2-8); NEUTROPHILS PERCENT AUTO 62.1 % (42.2-75.2); PLATELET COUNT,PLT 211 10^3/uL (150-450); RED BLOOD CELL COUNT 4.18 10^6/uL (4.2-5.4); WHITE BLOOD CELL COUNT,WBC 5.1 10^3/uL (5.0-10.0)
[2025-01-03] MEDS: Acetaminophen 500 MG Tab PO ONE (11:48)
[2025-01-03] MEDS: Ibuprofen 400 MG Tab PO ONE (11:48)
== END 2025-01-03 12:20 | disposition home or self-care (01) ==
LOC: DL.ED 10:08
DX: M79.602 Pain in left arm (principal); I10 Essential (primary) hypertension; J44.9 Chronic obstructive pulmonary disease, unspecified; Z88.8 Allergy status to other drugs, medicaments and biological substances; Z79.82 Long term (current) use of aspirin; Z79.899 Other long term (current) drug therapy; Z86.16 Personal history of COVID-19; Z90.49 Acquired absence of other specified parts of digestive tract
CPT/HCPCS: 36415; 71045; 80053; 84484; 85025; 85610; 99282; 99284; A9270